=== PATIENT | male | born 1985 | race Two or more races ===

== ENCOUNTER 2022-03-08 05:01 | Emergency (ER) | payer OTHER ==
[~2022-03-08] VITALS: Ht 167.6 cm; Wt 74.8 kg
[2022-03-08] MEDS ORDERED: KETOROLAC TROMETHAMINE INJ 30 MG/ML VIAL ONE (06:26)
--- NOTE | 2022-03-08 06:29 | NUR ---
biblapd c/o ok to book, vss, pt afebrile. no acute distress noted.
[2022-03-08] MEDS ORDERED: KETOROLAC TROMETHAMINE INJ 60 MG/2 ML VIAL IM ONE (06:30)
--- NOTE | 2022-03-08 06:51 | NUR ---
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
[2022-03-08] MEDS ORDERED: IBUP-1957 PO (09:15)
[2022-03-08 09:59] VITALS: BP 135/88
--- NOTE | 2022-03-08 10:00 | NUR ---
Patient left in stable condition accompanied by [employer] in no distress.
== END 2022-03-08 10:00 ==
LOC: ER 05:03
DX: S42.211A Unspecified displaced fracture of surgical neck of right humerus, initial encounter for closed fracture (principal); Z60.2 Problems related to living alone; V09.9XXA Pedestrian injured in unspecified transport accident, initial encounter; Y93.89 Activity, other specified; Y92.89 Other specified places as the place of occurrence of the external cause; Y99.8 Other external cause status
CPT/HCPCS: 99283; 96372; 73030; J1885